=== PATIENT | female | born 1995 | race Two or more races ===

== ENCOUNTER 2018-09-08 08:04 | Outpatient (CLI) | payer OTHER ==
[~2018-09-08] VITALS: Ht 152.4 cm; Wt 47.6 kg
== END 2018-09-08 08:20 | disposition home or self-care (01) ==
LOC: OFIC 805 08:04
DX: H60.8X3 Other otitis externa, bilateral (principal); H61.23 Impacted cerumen, bilateral

== ENCOUNTER → 2020-08-22 07:44 | Outpatient (CLI) | payer OTHER | END | disposition home or self-care (01) | LOC: LAB 07:44 | DX: Z20.828 Contact with and (suspected) exposure to other viral communicable diseases (principal) ==

== ENCOUNTER 2020-09-19 07:40 | Outpatient (CLI) | payer OTHER | END 2020-09-19 18:00 | disposition home or self-care (01) | LOC: LAB 07:40 | DX: Z20.828 Contact with and (suspected) exposure to other viral communicable diseases (principal) ==

== ENCOUNTER 2022-05-07 13:12 | Outpatient (CLI) | payer OTHER | END 2022-05-07 14:53 | disposition home or self-care (01) | LOC: PRENATAL 13:12 | PROVIDERS: ATTEND Obstetrics & Gynecology Maternal & Fetal Medicine | DX: O35.0XX0 Maternal care for (suspected) central nervous system malformation in fetus, not applicable or unspecified (principal); O35.3XX0 Maternal care for (suspected) damage to fetus from viral disease in mother, not applicable or unspecified; O26.879 Cervical shortening, unspecified trimester; Z3A.22 22 weeks gestation of pregnancy ==

== ENCOUNTER 2022-06-04 08:43 | Outpatient (CLI) | payer OTHER | END 2022-06-04 10:00 | disposition home or self-care (01) | LOC: PRENATAL 08:43 | PROVIDERS: ATTEND Obstetrics & Gynecology Maternal & Fetal Medicine | DX: O26.849 Uterine size-date discrepancy, unspecified trimester (principal); O26.879 Cervical shortening, unspecified trimester; Z3A.26 26 weeks gestation of pregnancy ==

== ENCOUNTER 2022-07-01 15:53 | Outpatient (CLI) | payer OTHER | END 2022-07-01 16:00 | disposition home or self-care (01) | LOC: LAB 15:53 | PROVIDERS: ATTEND Obstetrics & Gynecology | DX: Z34.83 Encounter for supervision of other normal pregnancy, third trimester (principal); O26.873 Cervical shortening, third trimester ==

== ENCOUNTER 2022-07-14 09:18 | Outpatient (CLI) | payer OTHER | END 2022-07-14 09:45 | disposition home or self-care (01) | LOC: PRENATAL 09:18 | PROVIDERS: ATTEND Obstetrics & Gynecology Maternal & Fetal Medicine | DX: O26.849 Uterine size-date discrepancy, unspecified trimester (principal); O36.8199 Decreased fetal movements, unspecified trimester, other fetus; O35.9XX0 Maternal care for (suspected) fetal abnormality and damage, unspecified, not applicable or unspecified; Z3A.32 32 weeks gestation of pregnancy ==

== ENCOUNTER 2022-08-10 00:21 | Outpatient (CLI) | payer OTHER ==
[~2022-08-10] VITALS: Ht 152.4 cm; Wt 65.3 kg
[2022-08-10] MEDS ORDERED: PRENATAL TABLE1 EAC1 PO (00:43)
[2022-08-10] MEDS ORDERED: PROMETRIUM200 MG PO (00:44)
== END 2022-08-10 18:01 | disposition home or self-care (01) ==
LOC: OB/GYN 00:21 → OBS/DEL 00:21 → LDR 00:21 → OB/GYN 10:43 → LDR 10:43 → OB/GYN 10:43 → OBS/DEL 18:01 → EDSTATUS 08-12 11:32
PROVIDERS: ATTEND Obstetrics & Gynecology
DX: O26.893 Other specified pregnancy related conditions, third trimester (principal); Z3A.36 36 weeks gestation of pregnancy; Z88.1 Allergy status to other antibiotic agents; Z20.822 Contact with and (suspected) exposure to COVID-19

== ENCOUNTER 2023-05-16 14:27 | Outpatient (CLI) | payer OTHER ==
[~2023-05-16 14:27] MED LIST: PRENATAL TABLE1 EAC1 PO; PROMETRIUM200 MG PO
== END 2023-05-16 17:41 | disposition home or self-care (01) ==
LOC: PRENATAL 14:27
PROVIDERS: ATTEND Obstetrics & Gynecology Maternal & Fetal Medicine
DX: O36.80X0 Pregnancy with inconclusive fetal viability, not applicable or unspecified (principal); Z36.82 Encounter for antenatal screening for nuchal translucency; Z36.9 Encounter for antenatal screening, unspecified; Z3A.12 12 weeks gestation of pregnancy

== ENCOUNTER 2023-07-11 14:04 | Outpatient (CLI) | payer OTHER | END 2023-07-11 17:21 | disposition home or self-care (01) | LOC: PRENATAL 14:04 | PROVIDERS: ATTEND Obstetrics & Gynecology Maternal & Fetal Medicine | DX: O36.80X0 Pregnancy with inconclusive fetal viability, not applicable or unspecified (principal); Z36.82 Encounter for antenatal screening for nuchal translucency; Z3A.20 20 weeks gestation of pregnancy ==

== ENCOUNTER 2023-08-09 14:13 | Outpatient (CLI) | payer OTHER | END 2023-08-09 14:17 | disposition home or self-care (01) | LOC: PRENATAL 14:13 | PROVIDERS: ATTEND Obstetrics & Gynecology Maternal & Fetal Medicine | DX: O26.849 Uterine size-date discrepancy, unspecified trimester (principal); O26.879 Cervical shortening, unspecified trimester; Z3A.24 24 weeks gestation of pregnancy ==

== ENCOUNTER 2023-10-04 08:42 | Outpatient (CLI) | payer OTHER | END 2023-10-04 08:45 | disposition home or self-care (01) | LOC: PRENATAL 08:42 | PROVIDERS: ATTEND Obstetrics & Gynecology Maternal & Fetal Medicine | DX: O26.849 Uterine size-date discrepancy, unspecified trimester (principal); O36.8199 Decreased fetal movements, unspecified trimester, other fetus; Z3A.32 32 weeks gestation of pregnancy ==